=== PATIENT | male | born 1945 | race Caucasian/White ===

== ENCOUNTER 2019-09-07 12:37 | Emergency (ER) | payer MEDICARE ==
[~2019-09-07] VITALS: Ht 180.3 cm; Wt 90.0 kg
[2019-09-07 14:54] VITALS: BP 119/77
== END 2019-09-07 14:55 | disposition home or self-care (01) ==
LOC: ER 12:39
DX: S00.03XA Contusion of scalp, initial encounter (principal); W01.0XXA Fall on same level from slipping, tripping and stumbling without subsequent striking against object, initial encounter; Y93.01 Activity, walking, marching and hiking; Y92.89 Other specified places as the place of occurrence of the external cause; Y99.8 Other external cause status
CPT/HCPCS: 70450; 99284

== ENCOUNTER 2024-09-29 20:35 | Emergency (ER) | payer MEDICARE ==
[~2024-09-29] VITALS: Ht 180.3 cm; Wt 104.0 kg
[2024-09-29 20:39] VITALS: TEMP 97.5
[2024-09-29 21:19] LABS: BASOPHILS # (AUTO) 0.1 X10'3 (0-0.2); BASOPHILS % (AUTO) 0.7 % (0-1); EOSINOPHILS # (AUTO) 0.2 X10'3 (0-0.9); EOSINOPHILS % (AUTO) 2.1 % (0-6); HEMATOCRIT 40.2 % (42.0-52.0); HEMOGLOBIN 13.3 g/dl (14.0-17.9); LYMPHOCYTES % (AUTO) 22.4 % (21-51); MEAN CORPUSCULAR HEMOGLOBIN 32.8 PG (27.0-31.0); MEAN CORPUSCULAR HGB CONC 33.2 g/dL (33.0-36.5); MEAN CORPUSCULAR VOLUME 98.8 FL (78-98); MEAN PLATELET VOLUME 7.9 FL (7.4-10.4); MONOCYTES # (AUTO) 0.8 X10'3 (0-0.9); MONOCYTES % (AUTO) 8.7 % (2-12); NEUTROPHILS % (AUTO) 66.1 % (42-75); PLATELET COUNT 210 X10'3 (140-440); RED BLOOD COUNT 4.07 X10'6 (4.70-6.10); RED CELL DISTRIBUTION WIDTH 14.4 % (11.5-14.5)
--- NOTE | 2024-09-29 21:20 | Physician Documentation ---
History of Present Illness Chief Complaint: Flank Pain Stated Complaint: FLANK PAIN OK to notify your PCP?: Yes Primary Medical Doctor: "in [place]" Source: patient Mode of Arrival: POV Exam Limitations: no limitations HPI 71-year-old male presents with right-sided flank pain which radiates into his low back and into his lower abdomen. He denies a history of kidney stones or urinary symptoms. He does have a history of an umbilical hernia which he is also having pain in. Patient PMH: COPD, aortic aneruysm, HTN, gout. History as above. Symptoms began two days ago and when he came into the emergency room was 9. Currently pain is completely resolved. Denies fevers Medication Reconciliation Allergies: Coded Allergies: No Known Allergies (Unverified , 09/29/24) Past Medical History Past Medical History: No Pertinent History Past Surgical History: noncontributory Alcohol Use: None Drug Use: none Review of Systems All Other Systems at this time: Reviewed and Negative ROS All review of systems negative except as per HPI Physical Exam Vital Signs: RN Vital Signs have been reviewed: Yes, Temperature: 97.5, Source: Temporal, Heart Rate: 85, Respiratory Rate: 22, BP: 173/99, Pulse Oximetry: 96, Weight: 104.000 Oxygen Flow Rate: 0 Pulse Oximetry Reflects: adequate oxygenation Physical Exam General: Patient is awake, alert, oriented x4 in no acute distress and well appearing.~ Head: Normocephalic and atraumatic. Eyes: Conjunctival normal. EOMI. PERRL. ENT: Mucous membranes moist. Neck: Supple, trachea is midline. Chest: Clear to auscultation bilaterally without rales, rhonchi, or wheezes. There is no accessory muscle use or retractions. Cardiac: RRR without murmurs, gallops, or rubs. Abd: Soft, nondistended, nontender, with normoactive bowel sounds. No guarding, rebound, or rigidity. Progress Results/Orders Results/Orders Vital Signs 09/29/24 20:39 Temp 97.5 Pulse 85 Resp 22 B/P (MAP) 173/99 Pulse Ox 96 O2 Flow Rate 0 Laboratory Tests Test 09/29/24 20:57 CBC Comment Chemistry Comments Medical Decision Making Findings Patient presents to the emergency room with right-sided flank pain as per HPI. Differentials include but are not limited to kidney stone, pyelonephritis, appendicitis, diverticulitis, aortic pathology therefore emergent labs ordered. Labs reassuring for no elevation of white blood cell count. No evidence of kidney injury. Noted hematuria. In the light of patient's flank pain with hematuria I strongly suspect kidney stone however he has no symptoms at this time. That has discussing risks benefits alternatives we are deferring any CT scan at this time and patient would prefer to go home. ER precautions regarding fevers or worsening of symptoms/return if symptoms discussed. No evidence of urinary tract infection. Vital signs stable. Departure Disposition: HOME / SELF CARE / HOMELESS Impression: Primary Impression: Abdominal pain Additional Impression: Suspected kidney stone Condition: Improved Discharge Instructions: Kidney Stones Additional Instructions: Return for fevers or worsening of symptoms Referrals: NO PRIMARY CARE PROVIDER (PCP) Additional Comment Medical Screen Exam This patient recieved a medical screening examination. After reviewing the individual's medical complaints with presenting symptoms and performing an appropriate physical examination, it was determined that no immediate life- threatening emergency medical condition is present. This individual is also not a women having contractions. Signature Scribe Signature: No scribe Attestation: The note accurately reflects work and decisions made by me.Dennis Valencia MD 09/30/24 00:53 SILVINO DIAZ Sep 29, 2024 21:20 DENNIS VALENCIA MD Sep 30, 2024 00:53
[2024-09-29 21:36] LABS: ALANINE AMINOTRANSFERASE 35 U/L (12-78); ALBUMIN 3.8 G/DL (3.4-5.0); ALBUMIN/GLOBULIN RATIO 1.2 (1.1-1.5); ALKALINE PHOSPHATASE 62 IU/L (46-116); ANION GAP 7 (8-16); ASPARTATE AMINO TRANSFERASE 25 U/L (10-37); BILIRUBIN,TOTAL 0.4 MG/DL (0.1-1.0); BLOOD UREA NITROGEN 14 MG/DL (7-18); CALCIUM 9.5 MG/DL (8.5-10.1); CHLORIDE 106 MMOL/L (99-107); GLUCOSE 104 MG/DL (70-104); LIPASE 76 U/L (16-77); POTASSIUM 4.3 MMOL/L (3.5-5.1); SODIUM 144 MMOL/L (135-145); TOTAL CARBON DIOXIDE 30.7 MMOL/L (24-32); TOTAL PROTEIN 7.1 G/DL (6.4-8.2); eCRCL 65 ML/MIN; eGFR 72 ML/MIN
[2024-09-29 22:16] LABS: BILIRUBIN,URINE NEGATIVE (Neg); CLARITY,URINE CLEAR (Clear); COLOR,URINE YELLOW (Yellow); GLUCOSE, URINE NEGATIVE (Neg); KETONES,URINE NEGATIVE (Neg); LEUKOCYTE ESTERASE ,URINE NEGATIVE (Neg); NITRITES, URINE NEGATIVE (Neg); OCCULT BLOOD,URINE LARGE (Neg); PROTEIN,URINE NEGATIVE (Neg); UROBILINOGEN,URINE 0.2 E.U/dL (0.2-1.0)
[2024-09-29 22:23] LABS: UA COLLECTION TYPE VOIDED
[2024-09-29 22:25] LABS: MUCUS STRANDS FEW /LPF (Neg); SQUAMOUS EPITHELIAL CELL,UR NONE SEEN /LPF (FEW); WBC,URINE 0-4 /HPF (0-4)
[2024-09-29 22:26] LABS: BACTERIA,URINE NONE SEEN /HPF (Neg)
[2024-09-30 00:44] VITALS: BP 169/94; PULSE 87; RESP 16; O2SAT 96
== END 2024-09-30 00:59 | disposition home or self-care (01) ==
LOC: ER 20:35
DX: R10.9 Unspecified abdominal pain (principal); I10 Essential (primary) hypertension; J44.9 Chronic obstructive pulmonary disease, unspecified
CPT/HCPCS: 80053; 81001; 83690; 85025; 99283